=== PATIENT | male | born 1965 | race Caucasian/White ===

== ENCOUNTER 2019-08-05 10:22 | Emergency (ER) | payer SELFPAY ==
[2019-08-05] MEDS ORDERED: LIDOCAINE 5% (700 MG) TRANSDERMAL ADH..PATCH TP ONE (10:51)
[2019-08-05] MEDS ORDERED: KETOROLAC TROMETHAMINE 60 MG/2 ML SDV IM ONE (10:51)
[2019-08-05] MEDS ORDERED: CYCLOBENZAPRINE HCL 10 MG TABLET PO ONE (10:51)
--- NOTE | 2019-08-05 10:54 | ER Document Report ---
ED Medical Screen (RME) - General Chief Complaint: Back Pain Stated Complaint: BACK PAIN Time Seen by Provider: 08/05/19 10:46 Primary Care Provider: BARON VALDES [Primary Care Provider] - Follow up as needed Mode of Arrival: Ambulatory Information source: Patient Notes: Patient is a 54-year-old male presenting to the emergency department with chief complaint of right-sided low back pain that is now radiating into his right groin/testicle area. Patient reports he did some heavy lifting approximately 4 days ago and he thought that the pain was originating from that. Patient reports pain has progressively gotten worse. Patient denies any blood in his urine or dysuria. Patient is tearful in triage. Exam: Right-sided lumbar paraspinous tenderness. Right lower quadrant abdominal tenderness with palpation. I have greeted and performed a rapid initial assessment of this patient. A comprehensive ED assessment and evaluation of the patient, analysis of test results and completion of the medical decision making process will be conducted by additional ED providers. I have specifically instructed the patient or family members with the patient to immediately return to any nursing staff should anything change in the patient's condition or with their chief complaint. This medical record was dictated with voice recognizing software. There may be grammatical, syntax errors that are unintended. - Related Data Allergies/Adverse Reactions: No Known Allergies Allergy (Verified 06/20/12 16:57) Home Medications: aleve Past Medical History - Social History Frequency of alcohol use: Occasional Drug Abuse: Marijuana - Immunizations Hx Diphtheria, Pertussis, Tetanus Vaccination: Yes Physical Exam - Vital signs Vitals: Temp Pulse Resp BP Pulse Ox 98.1 F 81 14 184/91 H 94 08/05/19 10:31 08/05/19 10:31 08/05/19 10:31 08/05/19 10:31 08/05/19 10:31 Course - Vital Signs Vital signs: Temp Pulse Resp BP Pulse Ox 98.1 F 81 14 184/91 H 94 08/05/19 10:31 08/05/19 10:31 08/05/19 10:31 08/05/19 10:31 08/05/19 10:31 Doctor's Discharge - Discharge Referrals: BARON VALDES [Primary Care Provider] - Follow up as needed
[2019-08-05 11:27] LABS: ABSOLUTE BASOPHILS # (AUTO) 0.1 10^3/uL (0.0-0.2); ABSOLUTE EOSINOPHILS # (AUTO) 0.1 10^3/uL (0.0-0.6); ABSOLUTE LYMPHOCYTES (AUTO) 1.2 10^3/uL (0.5-4.7); ABSOLUTE MONOCYTES (AUTO) 0.5 10^3/uL (0.1-1.4); ABSOLUTE NEUT (AUTO) 3.9 10^3/uL (1.7-8.2); BASOPHILS % (AUTO) 0.9 % (0-2); EOSINOPHILS % (AUTO) 1.5 % (0-6); HEMATOCRIT 45.4 % (37.9-51.0); HEMOGLOBIN 15.5 g/dL (13.5-17.0); LYMPHOCYTES % (AUTO) 21.1 % (13-45); MEAN CORPUSCULAR HEMOGLOBIN 32.6 pg (27.0-33.4); MEAN CORPUSCULAR HGB CONC 34.3 g/dL (32.0-36.0); MEAN CORPUSCULAR VOLUME 95 fl (80-97); MONOCYTES % (AUTO) 9.5 % (3-13); PLATELET COUNT 162 10^3/uL (150-450); RED BLOOD COUNT 4.77 10^6/uL (4.35-5.55); RED CELL DISTRIBUTION WIDTH 13.5 % (11.5-14.0); TOTAL CELLS COUNTED % (AUTO) 100 %; WHITE BLOOD COUNT 5.7 10^3/uL (4.0-10.5)
[2019-08-05 11:47] LABS: ALBUMIN 4.4 g/dL (3.5-5.0); ALKALINE PHOSPHATASE 96 U/L (38-126); ANION GAP 7 (5-19); ASPARTATE AMINO TRANSFERASE 30 U/L (17-59); BILIRUBIN,DIRECT 0.2 mg/dL (0.0-0.4); BILIRUBIN,TOTAL 0.7 mg/dL (0.2-1.3); BLOOD UREA NITROGEN 18 mg/dL (7-20); CALCIUM 9.6 mg/dL (8.4-10.2); CARBON DIOXIDE 34 mmol/L (22-30); CHLORIDE 96 mmol/L (98-107); GLUCOSE 113 mg/dL (75-110); POTASSIUM 5.4 mmol/L (3.6-5.0); TOTAL PROTEIN 7.9 g/dL (6.3-8.2)
[2019-08-05 11:50] LABS: APPEARANCE,URINE CLEAR; BILIRUBIN,URINE NEGATIVE (NEGATIVE); COLOR,URINE YELLOW; GLUCOSE, URINE NEGATIVE (NEGATIVE); KETONES,URINE NEGATIVE (NEGATIVE); PROTEIN,URINE NEGATIVE (NEGATIVE); URINE SPECIFIC GRAVITY 1.017; UROBILINOGEN,URINE NEGATIVE mg/dL (<2.0)
--- NOTE | 2019-08-05 12:00 | RADIOLOGY REPORT (SQ) ---
EXAM DESCRIPTION: CT ABD/PELVIS NO ORAL OR IV COMPLETED DATE/TIME: 08/05/2019 11:15 am REASON FOR STUDY: R flank/RLQ pain COMPARISON: None. TECHNIQUE: CT scan of the abdomen and pelvis performed without intravenous or oral contrast. Images reviewed with lung, soft tissue, and bone windows. Reconstructed coronal and sagittal MPR images revi ewed. All images stored on PACS. All CT scanners at this facility use dose modulation, iterative reconstruction, and/or weight based d osing when appropriate to reduce radiation dose to as low as reasonably achievable (ALARA). [facility]: Dose Right [facility]: CareDose [facility]: Dose Right [facility]: Teradose 4D [facility]: ParentingInformer RADIATION DOSE: CT Rad equipment meets quality standard of care and radiation dose reduction techniq ues were employed. CTDIvol: 15.2 mGy. DLP: 822 mGy-cm.mGy. LIMITATIONS: None. FINDINGS: LOWER CHEST: No significant findings. No nodules or infiltrates. NON-CONTRASTED LIVER, SPLEEN, ADRENALS: Evaluation limited by lack of IV contrast. No identified sign ificant masses. PANCREAS: No masses. No peripancreatic inflammatory changes. GALLBLADDER: No identified stones by CT criteria. No inflammatory changes to suggest cholecystitis. RIGHT KIDNEY AND URETER: No suspicious masses. Assessment limited by lack of IV contrast. No signif icant calcifications. No hydronephrosis or hydroureter. LEFT KIDNEY AND URETER: No solid masses. There appears to be a parapelvic cyst. No significant samantha cifications. No hydronephrosis or hydroureter. AORTA AND RETROPERITONEUM: No aneurysm. No retroperitoneal masses or adenopathy. BOWEL AND PERITONEAL CAVITY: Scattered sigmoid diverticula with no associated acute inflammation. No obvious bowel mass. APPENDIX: Normal. PELVIS, BLADDER, AND ABDOMINAL WALL:Urinary bladder is normal. No abnormal pelvic mass or fluid malena ection. A 3 cm wide umbilical hernia contains only fat. BONES: No significant findings. OTHER: No other significant finding. IMPRESSION: 1. No acute finding in the abdomen or pelvis. No urinary pathology is seen. The appen nina is normal. 2. There is a 3 cm wide umbilical hernia containing fat. COMMENT: Quality ID # [id number]: Final reports with documentation of one or more dose reduction techniques (e.g., Automated exposure control, adjustment of the mA and/or kV according to patient size, use of iterative reconstruction technique) TECHNICAL DOCUMENTATION: JOB ID: [id number] [employer]- All Rights Reserved Reading location - IP/workstation name: [email or web address]
--- NOTE | 2019-08-05 13:53 | ER Document Report ---
ED General - General Chief Complaint: Back Pain Stated Complaint: BACK PAIN Time Seen by Provider: 08/05/19 10:46 Primary Care Provider: BARON VALDES [Primary Care Provider] - Follow up as needed Mode of Arrival: Ambulatory Information source: Patient - HPI Notes: Patient states during the end of last week he was using a sledgehammer to tear down a chimney. He states after this he developed some right low back pain. He states it has increased. He states over the last 3 days he is tried rest and anti-inflammatories with no significant relief. The pain is mainly in the right lower back and goes into his right buttocks. He states he did get one sharp pain into the right testicle but none since. The pain is worse with movement and better with rest. He denies any abnormal sensations or numbness around the perineal rectal or testicle area. He states he has no new problems with urination or defecation. He can ambulate. No nausea or vomiting. The pain has been severe and sharp. By the time I saw him in the room he had received a dose of anti-inflammatories and a lidocaine patch and states that he feels significantly improved. States she is able to sleep for an hour in the room. - Related Data Allergies/Adverse Reactions: No Known Allergies Allergy (Verified 06/20/12 16:57) Home Medications: aleve Past Medical History - General Information source: Patient - Social History Smoking Status: Current Every Day Smoker Frequency of alcohol use: Occasional Drug Abuse: Marijuana Family History: Reviewed & Not Pertinent Patient has suicidal ideation: No Patient has homicidal ideation: No - Immunizations Hx Diphtheria, Pertussis, Tetanus Vaccination: Yes Review of Systems - Review of Systems Constitutional: denies: Chills, Fever Cardiovascular: denies: Chest pain, Palpitations Respiratory: denies: Cough, Short of breath Genitourinary: denies: Incontinence, Urgency, Retention -: Yes All other systems reviewed and negative Physical Exam - Vital signs Vitals: Temp Pulse Resp BP Pulse Ox 98.1 F 81 14 184/91 H 94 08/05/19 10:31 08/05/19 10:31 08/05/19 10:31 08/05/19 10:31 08/05/19 10:31 Interpretation: Hypertensive - General General appearance: Appears well, Alert In distress: None - HEENT Head: Normocephalic, Atraumatic Eyes: Normal Pupils: PERRL - Respiratory Respiratory status: No respiratory distress Chest status: Nontender Breath sounds: Normal Chest palpation: Normal - Cardiovascular Rhythm: Regular Heart sounds: Normal auscultation Murmur: No - Abdominal Inspection: Obese, Other - Has reducible umbilical hernia Distension: No distension Bowel sounds: Normal Tenderness: Nontender Organomegaly: No organomegaly - Back Back: Tender - Patient is tender to palpation of the right paraspinal musculature. The vertebral bodies themselves are not significantly tender there is no step-offs or deformities.. No: Vertebra tenderness - Extremities General upper extremity: Normal inspection, Nontender, Normal color, Normal ROM, Normal temperature General lower extremity: Normal inspection, Nontender, Normal color, Normal ROM, Normal temperature, Normal weight bearing. No: Cecilio's sign - Neurological Neuro grossly intact: Yes Cognition: Normal Orientation: AAOx4 [place] Coma Scale Eye Opening: Spontaneous [place] Coma Scale Verbal: Oriented Andrea Coma Scale Motor: Obeys Commands [place] Coma Scale Total: 15 Speech: Normal Motor strength normal: LUE, RUE, LLE, RLE Sensory: Normal - Psychological Associated symptoms: Normal affect, Normal mood - Skin Skin Temperature: Warm Skin Moisture: Dry Skin Color: Normal Course - Re-evaluation Re-evalutation: 08/05/19 13:54 My exam patient has no signs of cauda equina. Patient has no problems with bowel bladder no significant abnormal sensations. His blood pressure is somewhat elevated although he is in pain. I will recommend that he has this rechecked and monitored. I will send him home with pain medicine and anti- inflammatories. I did discuss with the patient that he most likely has a herniated disc. We discussed doing an MRI today but he states that he would rather wait and see if it does get better on its own. I thought this was a reasonable decision. Patient was educated about a peripheral nerve root impingement versus a central herniation of a disc. I told him the signs and symptoms of each 1 and what would constitute an emergency such that he should return to the emergency department. Patient appeared to understand and agreed with a trial of anti-inflammatories pain medicine and rest. - Vital Signs Vital signs: Temp Pulse Resp BP Pulse Ox 98.1 F 81 14 184/91 H 94 08/05/19 10:31 08/05/19 10:31 08/05/19 10:31 08/05/19 10:31 08/05/19 10:31 - Laboratory Result Diagrams: 08/05/19 11:05 08/05/19 11:05 Laboratory results interpreted by me: 08/05/19 11:05 Potassium 5.4 H Chloride 96 L Carbon Dioxide 34 H Glucose 113 H - Diagnostic Test Radiology reviewed: Image reviewed, Reports reviewed Discharge - Discharge Clinical Impression: Lumbar strain Qualifiers: Encounter type: initial encounter Qualified Code(s): S39.012A - Strain of mu scle, fascia and tendon of lower back, initial encounter Condition: Stable Disposition: HOME, SELF-CARE Instructions: Low Back Pain ([facility]), Oral Narcotic Medication ([facility]) Additional Instructions: Please return if the pain increases, you have problems with not being able to have bowel movements or not being able to urinate. Also please return if urine or stool is leaking. If you develop any abnormal sensations or numbness around your testicles or rectum or groin please return as well. Your blood pressure was elevated today but this may be due to pain. However is very important that you have your primary care physician monitor this and recheck your blood pressure again in the next week. If you do not have a primary care physician please follow-up with the [facility] whose number is on your discharge instructions. Prescriptions: Lidocaine [Lidoderm 5% (700 mg) Transdermal Patch] 1 patch TP DAILY 5 Days #5 adh..patch Ibuprofen [Motrin 600 Mg Tablet] 600 mg PO TID 3 Days #15 tablet Oxycodone HCl/Acetaminophen [Percocet 5-325 mg Tablet] 1 - 2 tab PO Q6 3 Days #12 tablet Referrals: LOCAL,NO [Primary Care Provider] - Follow up as needed
[2019-08-05 14:08] VITALS: BP 185/95
== END 2019-08-05 14:20 | disposition home or self-care (01) ==
LOC: ER 10:22
DX: S39.012A Strain of muscle, fascia and tendon of lower back, initial encounter (principal); X58.XXXA Exposure to other specified factors, initial encounter; K42.9 Umbilical hernia without obstruction or gangrene; N50.811 Right testicular pain; F17.200 Nicotine dependence, unspecified, uncomplicated; F12.10 Cannabis abuse, uncomplicated
CPT/HCPCS: 36415; 85025; 80053; 81001; 74176; J1885; 96374; 99284

== ENCOUNTER 2019-09-20 17:44 | Emergency (ER) | payer SELFPAY ==
[2019-09-20] MEDS ORDERED: HYDROCODONE/ACETAMINOPHEN 5-325 MG (6 TAB/ER DISP) PO PRN (18:20)
[2019-09-20] MEDS ORDERED: CLINDAMYCIN HCL 150 MG CAPSULE PO ONE (18:20)
--- NOTE | 2019-09-20 18:24 | ER Document Report ---
ED Oral Problem - General Chief Complaint: Toothache Stated Complaint: TOOTH PAIN Time Seen by Provider: 09/20/19 18:17 Primary Care Provider: [facility] [Provider Group] - Follow up as needed BARON VALDES [Primary Care Provider] - Follow up as needed Mode of Arrival: Ambulatory Information source: Patient Notes: 54-year-old male presented to ED for complaint of dental pain to the left upper jaw in the front for the last 4 days. He has had a dental cavity for much longer than that but it has been hurting for that long. He states he is not bee n able to sleep or eat or do anything. He states he is normally smokes much more than he does lately but he has barely smoked at all due to the pain for the last 4 days. - HPI Patient complains to provider of: Toothache Onset: Other - 4 days Onset: Gradual Quality of pain: Sharp, Throbbing Severity: Severe Pain Level: 5 Associated symptoms: Toothache Worsened by: Cold Relieved by: Nothing Similar symptoms previously: Yes Recently seen / treated by doctor/dentist: No - Related Data Allergies/Adverse Reactions: No Known Allergies Allergy (Verified 06/20/12 16:57) Past Medical History - General Information source: Patient - Social History Smoking Status: Current Every Day Smoker Cigarette use (# per day): Yes - Pack a day Smoking Education Provided: Yes - 4 minutes Frequency of alcohol use: Social Drug Abuse: Marijuana Lives with: Family Family History: Reviewed & Not Pertinent Patient has suicidal ideation: No Patient has homicidal ideation: No - Past Medical History Cardiac Medical History: Reports: None Pulmonary Medical History: Reports: None EENT Medical History: Reports: None Neurological Medical History: Reports: None Endocrine Medical History: Reports: None Renal/ Medical History: Reports: None Malignancy Medical History: Reports None GI Medical History: Reports: Other - Umbilical hernia Musculoskeletal Medical History: Reports None, Reports Hx Musculoskeletal Trauma Skin Medical History: Reports None Psychiatric Medical History: Reports: None Traumatic Medical History: Reports: None Infectious Medical History: Reports: None Past Surgical History: Reports: Hx Tonsillectomy Review of Systems - Review of Systems Constitutional: No symptoms reported EENT: Mouth pain, Dental problem Cardiovascular: No symptoms reported Respiratory: No symptoms reported Gastrointestinal: No symptoms reported Genitourinary: No symptoms reported Male Genitourinary: No symptoms reported Musculoskeletal: No symptoms reported Skin: No symptoms reported Hematologic/Lymphatic: No symptoms reported Neurological/Psychological: No symptoms reported -: Yes All other systems reviewed and negative Physical Exam - Vital signs Vitals: Temp Pulse BP Pulse Ox 98.6 F 87 172/98 H 96 09/20/19 18:17 09/20/19 18:17 09/20/19 18:17 09/20/19 18:17 Interpretation: Normal - General General appearance: Appears well, Alert - HEENT Head: Normocephalic, Atraumatic Eyes: Normal Pupils: PERRL Ears: Normal External canal: Normal Tympanic membrane: Normal Sinus: Normal Nasal: Purulent discharge Mouth/Lips: Normal Mucous membranes: Normal Teeth diagram: 1 - Dental pain with swelling to the gums tenderness to the face up to the Pharynx: Normal Neck: Normal - Respiratory Respiratory status: No respiratory distress Chest status: Nontender Breath sounds: Normal Chest palpation: Normal - Cardiovascular Rhythm: Regular Heart sounds: Normal auscultation Murmur: No - Abdominal Inspection: Normal Distension: No distension Bowel sounds: Normal Tenderness: Nontender Organomegaly: No organomegaly - Back Back: Normal, Nontender - Extremities General upper extremity: Normal inspection, Nontender, Normal color, Normal ROM, Normal temperature General lower extremity: Normal inspection, Nontender, Normal color, Normal ROM, Normal temperature, Normal weight bearing. No: Cecilio's sign - Neurological Neuro grossly intact: Yes Cognition: Normal Orientation: AAOx4 Andrea Coma Scale Eye Opening: Spontaneous [place] Coma Scale Verbal: Oriented [place] Coma Scale Motor: Obeys Commands [place] Coma Scale Total: 15 Speech: Normal Motor strength normal: LUE, RUE, LLE, RLE Sensory: Normal - Psychological Associated symptoms: Normal affect, Normal mood - Skin Skin Temperature: Warm Skin Moisture: Dry Skin Color: Normal Course - Re-evaluation Re-evalutation: 09/20/19 18:35 Presentation is most consistent with likely an infected tooth. Airway is patent. Vitals within normal limits. Patient is able swallow without any difficulty. There is no significant facial swelling. No evidence of Aden angina, apical abscess, or airway obstruction. Patient will be started on antibiotics. I've instructed to follow-up with dentistry as earliest ability for definitive management. At this time will discharge with return precautions and follow-up recommendations. Verbal discharge instructions given a the bedside and opportunity for questions given. Medication warnings reviewed. Patient is in agreement with this plan and has verbalized understanding of return precautions and the need for primary care follow-up in the next 24-72 hours. - Vital Signs Vital signs: Temp Pulse Resp BP Pulse Ox 98.6 F 87 172/98 H 96 09/20/19 18:17 09/20/19 18:17 09/20/19 18:17 09/20/19 18:17 Discharge - Discharge Clinical Impression: Pain due to dental caries Condition: Stable Disposition: HOME, SELF-CARE Additional Instructions: TOOTHACHE: Your pain is due to dental decay. The tooth must be repaired in order for you to feel better. You will, therefore, be referred to a dentist. We do not have dentists on the staff at [facility]. Severe swelling or drainage around a tooth usually means a dental abscess. This also requires evaluation and treatment by the dentist, but antibiotics may be prescribed while awaiting dental treatment. You should be rechecked immediately if you develop major swelling of the face, increasing pain, a lump in the jaw or gums, headache, difficulty swallowing, or fever. ORAL NARCOTIC MEDICATION: You have been given a [place] dispense pack for pain control. This medication is a narcotic. It's best taken with food, as nausea can result if taken on an empty stomach. Don't operate machinery or drive within six hours of taking this medication. Do not combine this medicine with alcohol, or with any medication which can cause sedation (such as cold tablets or sleeping pills) unless you get permission from the physician. Narcotics tend to cause constipation. If possible, drink plenty of fluids and eat a diet high in fiber and fruits. Please be aware that prescription narcotics also have the potential for abuse. People become addicted to these medications because of the general sense of wellbeing that they induce. This feeling along with a significant reduction in tension, anxiety, and aggression provides a stimulating seductive quality to these drugs. Once your pain is under control, we encourage you to discard your unused narcotics. CLINDAMYCIN: You have been given a prescription for the antibiotic clindamycin. It is often prescribed for infections in the mouth, such as dental infections or abscesses, and for skin infections due to MRSA. It's important that you take all the medication, unless instructed otherwise by your physician. Failure to complete the entire course can result in relapse of your condition. Common side effects of antibiotics include nausea, intestinal cramping, or diarrhea. Women may develop vaginal yeast infections, and babies can get yeast (thrush) in the mouth following the use of antibiotics. Contact your physician if you develop significant side effects from this medication. Allergy to this antibiotic can result in hives, wheezing, faintness, or itching. If symptoms of allergy occur, stop the medication and call the doctor. FOLLOW-UP CARE: You have been referred for follow-up care to the dentists listed below. Call the dentists office for an appointment as you were instructed or within the next two days. If you experience worsening or a significant change in your symptoms, notify the physician immediately or return to the Emergency Department at any time for re-evaluation. [facility] [address] [place] [address] [facility] [place] [address] [facility] [address] [facility] ([facility]) [facility] [address] [email or web address] [address] [place] [address] Monday- 8:00am to 5:00 pm [facility] other [facility]. Charges based on income and family size and accepts Medicare, Medicaid, and Insurances Will pull molars [facility] [address] Hours of Operation 8:00 am - 4:30 pm weekdays The following dental offices accept Medicaid: [facility] Dr. Mendez Dr. Javier Dr. Ortiz Dr. Torrez Quinn Huynh Luts[place], and [facility] oral [facility] Dr. Portillo ([place]) Dr. Burks ([place]) [facility] Drs. Doss ([place]) Dr. Carroll ([place]) [facility] Dr. Randhawa ([place]) Drs. Thompson and ([place]) Medicaid Care Line Prescriptions: Clindamycin HCl 300 mg PO Q6HP PRN #28 capsule PRN Reason: Forms: Smoking Cessation Education, Elevated Blood Pressure Referrals: BARON VALDES [Primary Care Provider] - Follow up as needed [facility] [Provider Group] - Follow up as needed
[2019-09-20 18:35] VITALS: BP 172/98
== END 2019-09-20 18:30 | disposition home or self-care (01) ==
LOC: ER 17:44
DX: K02.9 Dental caries, unspecified (principal); K08.89 Other specified disorders of teeth and supporting structures; F17.210 Nicotine dependence, cigarettes, uncomplicated; Z71.6 Tobacco abuse counseling; F12.10 Cannabis abuse, uncomplicated
CPT/HCPCS: 99282; 99406

== ENCOUNTER 2019-10-11 09:32 | Emergency (ER) | payer OTHER ==
--- NOTE | 2019-10-11 10:11 | ER Document Report ---
ED Medical Screen (RME) - General Chief Complaint: Abdominal Pain Stated Complaint: ABDOMINAL PAIN Time Seen by Provider: 10/11/19 10:00 Primary Care Provider: BARON VALDES [Primary Care Provider] - Follow up as needed Mode of Arrival: Ambulatory Information source: Patient Notes: This 54-year-old male with no prior history presents emergency department with a very large abdomen with reports of a hernia for the past 2 years. He reports recently abdominal pain increasing with pain radiating down to his groin. He reports decreased appetite. Also reports increased urinary frequency during the night. Also reports he notes blood in his stool occasionally. Denies fever vomiting. Has not been evaluated for these symptoms in the past. Patient abdomen large tight tender to touch in the lower abdomen with umbilical hernia noted, soft. I have greeted and performed a rapid initial assessment of this patient. A comprehensive ED assessment and evaluation of the patient, analysis of test results and completion of the medical decision making process will be conducted by additional ED providers. TRAVEL OUTSIDE OF THE [place] IN LAST 30 DAYS: No - Related Data Allergies/Adverse Reactions: No Known Allergies Allergy (Verified 10/11/19 09:51) Past Medical History - Social History Drug Abuse: Marijuana Musculoskeltal Medical History: Reports Hx Musculoskeletal Trauma Past Surgical History: Reports: Hx Tonsillectomy - Immunizations Hx Diphtheria, Pertussis, Tetanus Vaccination: Yes Physical Exam - Vital signs Vitals: Temp Pulse Resp BP Pulse Ox 97.7 F 78 18 166/88 H 95 10/11/19 09:45 10/11/19 09:45 10/11/19 09:45 10/11/19 09:45 10/11/19 09:45 Course - Vital Signs Vital signs: Temp Pulse Resp BP Pulse Ox 97.7 F 78 18 166/88 H 95 10/11/19 09:45 10/11/19 09:45 10/11/19 09:45 10/11/19 09:45 10/11/19 09:45 Doctor's Discharge - Discharge Referrals: BARON VALDES [Primary Care Provider] - Follow up as needed
[2019-10-11 10:37] LABS: APPEARANCE,URINE CLEAR; BILIRUBIN,URINE NEGATIVE (NEGATIVE); COLOR,URINE YELLOW; GLUCOSE, URINE 50 mg/dL (NEGATIVE); KETONES,URINE NEGATIVE (NEGATIVE); LEUKOCYTE ESTERASE,URINE NEGATIVE (NEGATIVE); NITRITE,URINE NEGATIVE (NEGATIVE); PROTEIN,URINE NEGATIVE (NEGATIVE); URINE SPECIFIC GRAVITY 1.014; UROBILINOGEN,URINE NEGATIVE mg/dL (<2.0)
[2019-10-11 11:14] LABS: ABSOLUTE EOSINOPHILS # (AUTO) 0.1 10^3/uL (0.0-0.6); ABSOLUTE LYMPHOCYTES (AUTO) 1.3 10^3/uL (0.5-4.7); ABSOLUTE MONOCYTES (AUTO) 0.5 10^3/uL (0.1-1.4); ABSOLUTE NEUT (AUTO) 4.8 10^3/uL (1.7-8.2); BASOPHILS % (AUTO) 0.7 % (0-2); EOSINOPHILS % (AUTO) 2.1 % (0-6); HEMATOCRIT 47.2 % (37.9-51.0); HEMOGLOBIN 16.4 g/dL (13.5-17.0); LYMPHOCYTES % (AUTO) 19.7 % (13-45); MEAN CORPUSCULAR HEMOGLOBIN 32.4 pg (27.0-33.4); MEAN CORPUSCULAR HGB CONC 34.7 g/dL (32.0-36.0); MEAN CORPUSCULAR VOLUME 93 fl (80-97); PLATELET COUNT 196 10^3/uL (150-450); RED BLOOD COUNT 5.07 10^6/uL (4.35-5.55); SEGMENTED NEUTROPHILS % (AUTO) 69.5 % (42-78); TOTAL CELLS COUNTED % (AUTO) 100 %; WHITE BLOOD COUNT 6.8 10^3/uL (4.0-10.5)
--- NOTE | 2019-10-11 11:18 | RADIOLOGY REPORT (SQ) ---
EXAM DESCRIPTION: U/S ABDOMEN LIMITED W/O DOP COMPLETED DATE/TIME: 10/11/2019 10:57 am REASON FOR STUDY: pain swelling hernia eval COMPARISON: None. TECHNIQUE: Dynamic and static grayscale images acquired of the abdomen and recorded on PACS. Additio nal selected color Doppler and spectral images recorded. LIMITATIONS: None. FINDINGS: Sonographic imaging of the periumbilical area shows a ventral hernia with apparent herniat ion of bowel with Valsalva maneuver. IMPRESSION: Ventral hernia as described. TECHNICAL DOCUMENTATION: JOB ID: [id number] [employer]- All Rights Reserved Reading location - IP/workstation name: [email or web address]
--- NOTE | 2019-10-11 11:22 | RADIOLOGY REPORT (SQ) ---
EXAM DESCRIPTION: U/S SCROTUM W/O DOPPLER COMPLETED DATE/TIME: 10/11/2019 10:57 am REASON FOR STUDY: ?inguinal hernia COMPARISON: None. TECHNIQUE: Static and realtime child scale imaging of the scrotum and testes. Selected color Doppler and spectral images recorded to document blood flow. LIMITATIONS: None. FINDINGS: RIGHT: TESTICLE: Normal size, 3.3 x 2.5 x 3.4 cm. Normal echotexture. Normal blood flow. No mass. EPIDIDYMIS: Normal, 11 mm. HYDROCELE OR VARICOCELE: Small hydrocele. HERNIA OR EXTRA-TESTICULAR MASS: There appears to be mild herniation of bowel in the right inguinal r egion with Valsalva maneuver. OTHER: No other significant finding. LEFT: TESTICLE: Normal size, 3.6 x 2.4 x 3.8 cm. Normal echotexture. Normal blood flow. No mass. EPIDIDYMIS: Normal, 11 mm. HYDROCELE OR VARICOCELE: Small hydrocele. HERNIA OR EXTRA-TESTICULAR MASS: No. OTHER: No other significant finding. IMPRESSION: Normal scrotal ultrasound except for the presence of small hydroceles bilaterally. Ther e appears to be a right inguinal hernia with mild herniation of bowel during a Valsalva maneuver. TECHNICAL DOCUMENTATION: JOB ID: [id number] [employer]- All Rights Reserved Reading location - IP/workstation name: [email or web address]
[2019-10-11 11:42] LABS: ALBUMIN 4.6 g/dL (3.5-5.0); ALKALINE PHOSPHATASE 74 U/L (38-126); ANION GAP 6 (5-19); ASPARTATE AMINO TRANSFERASE 39 U/L (17-59); BILIRUBIN,DIRECT 0.4 mg/dL (0.0-0.4); BILIRUBIN,TOTAL 0.8 mg/dL (0.2-1.3); BLOOD UREA NITROGEN 17 mg/dL (7-20); CALCIUM 10.2 mg/dL (8.4-10.2); CARBON DIOXIDE 34 mmol/L (22-30); CHLORIDE 96 mmol/L (98-107); GLUCOSE 89 mg/dL (75-110); POTASSIUM 5.5 mmol/L (3.6-5.0); TOTAL PROTEIN 8.2 g/dL (6.3-8.2)
[2019-10-11] MEDS ORDERED: IPRATROPIUM/ALBUTEROL 0.5-2.5 MG/3 ML AMPUL NEB ONE (12:37)
[2019-10-11] MEDS ORDERED: NORMAL SALINE 1000 ML 1,000 ML IV ONE (12:38)
--- NOTE | 2019-10-11 14:13 | RADIOLOGY REPORT (SQ) ---
EXAM DESCRIPTION: CT ABD/PELVIS WITH IV ONLY COMPLETED DATE/TIME: 10/11/2019 1:43 pm REASON FOR STUDY: abd pain despite umbilical hernia now reduced COMPARISON: None. TECHNIQUE: CT scan of the abdomen and pelvis performed using helical scanning technique with dynamic intravenous contrast injection. No oral contrast. Images reviewed with lung, soft tissue, and bone windows. Reconstructed coronal and sagittal MPR images reviewed. Delayed images for evaluation of the urinary system also acquired. All images stored on PACS. All CT scanners at this facility use dose modulation, iterative reconstruction, and/or weight based d osing when appropriate to reduce radiation dose to as low as reasonably achievable (ALARA). [facility]: Dose Right [facility]: CareDose [facility]: Dose Right [facility]: Teradose 4D [facility]: [employer] [facility] CONTRAST TYPE AND DOSE: Contrast/concentration: Isovue 350.00 mg/ml; Total Contrast Delivered: 100.0 ml; Total Saline Delivered: 70.0 ml RENAL FUNCTION: GFR > 60. RADIATION DOSE: CT Rad equipment meets quality standard of care and radiation dose reduction techniq ues were employed. CTDIvol: 17.7 - 19.8 mGy. DLP: 1953 mGy-cm.. LIMITATIONS: None. FINDINGS: LOWER CHEST: No acute findings. LIVER: The relative hypoattenuation of hepatic parenchyma compared to the splenic parenchyma on the p ortal venous phase is suggestive of hepatic steatosis. The portal veins are patent. There is no hep atic mass. SPLEEN: No splenomegaly or splenic mass. PANCREAS: No abnormality of the pancreas. GALLBLADDER: No abnormality that is apparent on CT. ADRENAL GLANDS: No mass or asymmetry. RIGHT KIDNEY AND URETER: No solid mass, hydronephrosis, nephrolithiasis, hydroureter or ureterolithia sis. LEFT KIDNEY AND URETER: 3 x 2.8 cm parapelvic cyst. There is no solid mass, hydronephrosis, nephroli thiasis or hydroureter or ureterolithiasis. AORTA AND VESSELS: No aneurysm of the abdominal aorta. RETROPERITONEUM: No retroperitoneal adenopathy, hemorrhage or mass. BOWEL AND PERITONEAL CAVITY: Colonic diverticulosis. There is no bowel obstruction, bowel wall thick ening, or pericolonic/perienteric inflammation. There is no mesenteric adenopathy, free intraperiton eal fluid, or mesenteric/ omental inflammation. APPENDIX: Normal. PELVIS: No abnormality of the prostate and urinary bladder. ABDOMINAL WALL: Fat containing umbilical hernia. BONES: No acute findings. OTHER: Spondylosis at L5-S1. IMPRESSION: 1. No acute intra-abdominal abnormality. 2. Fat containing umbilical hernia. 3. Colonic diverticulosis without diverticulitis. TECHNICAL DOCUMENTATION: JOB ID: [id number] Quality ID # [id number]: Final reports with documentation of one or more dose reduction techniques (e.g., Au tomated exposure control, adjustment of the mA and/or kV according to patient size, use of iterative reconstruction technique) 2010 [employer]- All Rights Reserved Reading location - IP/workstation name: [email or web address]-
[2019-10-11 14:14] VITALS: BP 164/98
--- NOTE | 2019-10-11 14:31 | ER Document Report ---
ED GI/ - General Chief Complaint: Abdominal Pain Stated Complaint: ABDOMINAL PAIN Time Seen by Provider: 10/11/19 10:00 Primary Care Provider: NADEEM MEADE MD [ACTIVE STAFF] - 10/15/19 2:30 pm Mode of Arrival: Ambulatory Notes: Patient is a 54-year-old male who comes in complaining of abdominal pain and nausea. States that he has a history of hernia and has not bothered him for a number of years. Has been bothering him the last 2 days. States that he has been lifting recently. No fever. Patient is still been having bowel movements. Denies any testicular pain. No dysuria. TRAVEL OUTSIDE OF THE [place] IN LAST 30 DAYS: No - HPI Timing/Duration: Gradual Quality of pain: Achy, Dull Severity at maximum: Moderate Severity in ED: Moderate Context: Lifting - Related Data Allergies/Adverse Reactions: No Known Allergies Allergy (Verified 10/11/19 09:51) Past Medical History - General Information source: Patient - Social History Smoking Status: Current Every Day Smoker Drug Abuse: Marijuana Family History: Reviewed & Not Pertinent Patient has suicidal ideation: No Patient has homicidal ideation: No Musculoskeletal Medical History: Reports Hx Musculoskeletal Trauma Past Surgical History: Reports: Hx Tonsillectomy - Immunizations Hx Diphtheria, Pertussis, Tetanus Vaccination: Yes Review of Systems - Review of Systems -: Yes All other systems reviewed and negative Physical Exam - Vital signs Vitals: Temp Pulse Resp BP Pulse Ox 97.7 F 78 18 166/88 H 95 10/11/19 09:45 10/11/19 09:45 10/11/19 09:45 10/11/19 09:45 10/11/19 09:45 Interpretation: Normal - General General appearance: Appears well, Alert - HEENT Head: Normocephalic, Atraumatic Eyes: Normal Pupils: PERRL - Respiratory Respiratory status: No respiratory distress Chest status: Nontender Breath sounds: Wheezing Chest palpation: Normal - Cardiovascular Rhythm: Regular Heart sounds: Normal auscultation Murmur: No - Abdominal Inspection: Obese, Other - Umbilical hernia Distension: No distension Bowel sounds: Normal Tenderness: Tender - Over umbilical hernia Organomegaly: No organomegaly - Back Back: Normal, Nontender - Extremities General upper extremity: Normal inspection, Nontender, Normal color, Normal ROM, Normal temperature General lower extremity: Normal inspection, Nontender, Normal color, Normal ROM, Normal temperature, Normal weight bearing. No: Cecilio's sign - Neurological Neuro grossly intact: Yes Cognition: Normal Orientation: AAOx4 [place] Coma Scale Eye Opening: Spontaneous [place] Coma Scale Verbal: Oriented [place] Coma Scale Motor: Obeys Commands Andrea Coma Scale Total: 15 Speech: Normal Motor strength normal: LUE, RUE, LLE, RLE Sensory: Normal - Psychological Associated symptoms: Normal affect, Normal mood - Skin Skin Temperature: Warm Skin Moisture: Dry Skin Color: Normal Course - Re-evaluation Re-evalutation: 10/11/19 Umbilical hernia reduced and patient shown how to do it. No surgical history. No acute findings on ultrasound, blood work, or CT except for a fat-containing umbilical hernia. Discussed with surgery, Dr. Meade. Patient can follow-up in the office. Patient is instructed to stop smoking and lose weight. Also given nebulizer treatment for slight expiratory wheeze. Appointment has been made for patient next Monday. Understands and agrees with plan. Taking p.o. without difficulty. Stable for discharge. Return if further concerns. Grateful for care. - Vital Signs Vital signs: Temp Pulse Resp BP Pulse Ox 98.1 F 70 16 164/98 H 93 10/11/19 14:11 10/11/19 14:11 10/11/19 14:11 10/11/19 14:11 10/11/19 14:11 - Laboratory Result Diagrams: 10/11/19 11:00 10/11/19 11:00 Laboratory results interpreted by me: 10/11/19 10/11/19 10:08 11:00 Sodium 135.6 L Potassium 5.5 H Chloride 96 L Carbon Dioxide 34 H Urine Glucose (UA) 50 H - Diagnostic Test Radiology reviewed: Reports reviewed Discharge - Discharge Clinical Impression: Bronchospasm Umbilical hernia Qualifiers: Obstruction and gangrene presence: without obstruction or gangrene Qualified Code(s): K42.9 - Umbilical hernia without obstruction or gangrene Condition: Stable Disposition: HOME, SELF-CARE Instructions: Bronchospasm ([facility]), Stop Smoking ([facility]), Umbilical Hernia ([facility]) Prescriptions: Ondansetron [Zofran Odt 4 mg Tablet] 1 tab PO Q6HP PRN #15 tab.rapdis PRN Reason: For Nausea/Vomiting Dicyclomine HCl [Bentyl 20 mg Tablet] 20 mg PO TIDP PRN #40 tablet PRN Reason: Forms: Return to Work Referrals: NADEEM MEADE MD [ACTIVE STAFF] - 10/15/19 2:30 pm
== END 2019-10-11 15:14 | disposition home or self-care (01) ==
LOC: ER 09:32
DX: K42.9 Umbilical hernia without obstruction or gangrene (principal); J98.01 Acute bronchospasm; R10.9 Unspecified abdominal pain; R11.0 Nausea; F17.200 Nicotine dependence, unspecified, uncomplicated; F12.10 Cannabis abuse, uncomplicated
CPT/HCPCS: 94640; 99284; 96360; 96361; 36415; 83605; 83690; 85025; 80053; 81001; 76870; 76705; 74177; J7030; J7620

== ENCOUNTER 2020-02-24 10:21 | Emergency (ER) | payer OTHER ==
[2020-02-24] MEDS ORDERED: MORPHINE SULFATE 10 MG/ML INJ IV ONE (10:46)
[2020-02-24] MEDS ORDERED: ONDANSETRON HCL INJ/PF 4 MG/2 ML SDV IV ONE (10:46)
--- NOTE | 2020-02-24 10:47 | ER Document Report ---
ED Medical Screen (RME) - General Chief Complaint: Flank Pain Stated Complaint: FLANK PAIN Time Seen by Provider: 02/24/20 10:43 Mode of Arrival: Wheelchair Information source: Patient Notes: 54-year-old male patient presented to the emergency department chief complaint of left-sided abdominal pain. Patient reports the pain started several days ago on the left lateral rib area but has now spread to the left upper quadrant of his abdomen. He denies any trauma to the area. He does report that the pain is getting worse every day. He denies any fevers, nausea, vomiting, diarrhea. He reports normal bowel movements every morning. He has never had this type of pain before. Tenderness to palpation left upper quadrant. I have greeted and performed a rapid initial assessment of this patient. A comprehensive ED assessment and evaluation of the patient, analysis of test results and completion of the medical decision making process will be conducted by additional ED providers. I have specifically instructed the patient or family members with the patient to immediately return to any nursing staff should anything change in the patient's condition or with their chief complaint. TRAVEL OUTSIDE OF THE [place] IN LAST 30 DAYS: No - Related Data Allergies/Adverse Reactions: No Known Allergies Allergy (Verified 10/11/19 09:51) Past Medical History Musculoskeltal Medical History: Reports Hx Musculoskeletal Trauma Past Surgical History: Reports: Hx Tonsillectomy - Immunizations Hx Diphtheria, Pertussis, Tetanus Vaccination: Yes Physical Exam - Vital signs Vitals: Temp Pulse Resp BP Pulse Ox 98.5 F 89 20 170/91 H 94 02/24/20 10:02/24/20 10:02/24/20 10:02/24/20 10:02/24/20 10:26 Course - Vital Signs Vital signs: Temp Pulse Resp BP Pulse Ox 98.5 F 89 20 170/91 H 94 02/24/20 10:02/24/20 10:02/24/20 10:02/24/20 10:02/24/20 10:26
[2020-02-24 11:36] LABS: ABSOLUTE EOSINOPHILS # (AUTO) 0.2 10^3/uL (0.0-0.6); ABSOLUTE LYMPHOCYTES (AUTO) 1.4 10^3/uL (0.5-4.7); ABSOLUTE MONOCYTES (AUTO) 0.6 10^3/uL (0.1-1.4); ABSOLUTE NEUT (AUTO) 5.6 10^3/uL (1.7-8.2); BASOPHILS % (AUTO) 0.6 % (0-2); EOSINOPHILS % (AUTO) 2.2 % (0-6); HEMATOCRIT 45.8 % (37.9-51.0); HEMOGLOBIN 16.2 g/dL (13.5-17.0); LYMPHOCYTES % (AUTO) 17.9 % (13-45); MEAN CORPUSCULAR HEMOGLOBIN 32.8 pg (27.0-33.4); MEAN CORPUSCULAR HGB CONC 35.4 g/dL (32.0-36.0); MEAN CORPUSCULAR VOLUME 93 fl (80-97); MONOCYTES % (AUTO) 7.7 % (3-13); PLATELET COUNT 184 10^3/uL (150-450); RED BLOOD COUNT 4.94 10^6/uL (4.35-5.55); RED CELL DISTRIBUTION WIDTH 13.1 % (11.5-14.0); SEGMENTED NEUTROPHILS % (AUTO) 71.6 % (42-78); TOTAL CELLS COUNTED % (AUTO) 100 %; WHITE BLOOD COUNT 7.8 10^3/uL (4.0-10.5)
[2020-02-24] MEDS ORDERED: OXYCODONE-ACETAMINOPHEN 5-325 MG TABLET PO ONE (11:43)
[2020-02-24] MEDS ORDERED: IBUPROFEN 600 MG TABLET PO ONE (11:43)
[2020-02-24 11:48] LABS: APPEARANCE,URINE CLEAR; BILIRUBIN,URINE NEGATIVE (NEGATIVE); COLOR,URINE YELLOW; GLUCOSE, URINE NEGATIVE (NEGATIVE); KETONES,URINE NEGATIVE (NEGATIVE); LEUKOCYTE ESTERASE,URINE NEGATIVE (NEGATIVE); NITRITE,URINE NEGATIVE (NEGATIVE); PROTEIN,URINE NEGATIVE (NEGATIVE); URINE SPECIFIC GRAVITY 1.024; UROBILINOGEN,URINE NEGATIVE mg/dL (<2.0)
[2020-02-24 11:52] LABS: ALBUMIN 4.5 g/dL (3.5-5.0); ALKALINE PHOSPHATASE 75 U/L (38-126); ANION GAP 5 (5-19); ASPARTATE AMINO TRANSFERASE 26 U/L (17-59); BILIRUBIN,TOTAL 0.5 mg/dL (0.2-1.3); BLOOD UREA NITROGEN 18 mg/dL (7-20); CALCIUM 9.7 mg/dL (8.4-10.2); CARBON DIOXIDE 33 mmol/L (22-30); CHLORIDE 97 mmol/L (98-107); GLUCOSE 109 mg/dL (75-110); TOTAL PROTEIN 7.5 g/dL (6.3-8.2)
--- NOTE | 2020-02-24 12:34 | ER Document Report ---
ED General - General Chief Complaint: Rib Pain Stated Complaint: FLANK PAIN Time Seen by Provider: 02/24/20 10:43 Mode of Arrival: Wheelchair Notes: 54-year-old male with morbid obesity chronic back and neck issues, notable coronary presents with left upper flank pain and back pain radiating around from his back worse with movement onset about a week and a half ago, no nausea no vomiting. Feels like "it is tearing under my ribs". No shortness of breath hemoptysis no leg swelling. Seen at triage labs ordered. Denies urinary symptoms other than nocturia. TRAVEL OUTSIDE OF THE [place] IN LAST 30 DAYS: No - Related Data Allergies/Adverse Reactions: No Known Allergies Allergy (Verified 10/11/19 09:51) Past Medical History - General Information source: Patient - Social History Smoking Status: Current Every Day Smoker Smoking Education Provided: Yes - The patient ED visit today was directly related to their abuse of tobacco. Family History: Reviewed & Not Pertinent Patient has homicidal ideation: No Musculoskeletal Medical History: Reports Hx Musculoskeletal Trauma Past Surgical History: Reports: Hx Tonsillectomy - Immunizations Hx Diphtheria, Pertussis, Tetanus Vaccination: Yes Review of Systems - Review of Systems Notes: REVIEW OF SYSTEMS GEN: Denies fever, chills, weight loss ENT: Denies sore throat, nasal discharge, ear pain EYES: Denies blurry vision, eye pain, discharge CV: Denies chest pain, palpitations, edema RESP: Denies cough, shortness of breath, wheezing GI: D abdominal pain flank pain MSK: Denies joint pain/swelling, edema, SKIN: Denies rash, skin lesions LYMPH: Denies swollen glands/lymph nodes NEURO: Denies headache, focal weakness or numbness, dizziness PSYCH: Denies depression, suicidal or homicidal ideation PHYSICAL EXAMINATION General: No acute distress, well-nourished Head: Atraumatic, normocephalic ENT: Mouth normal, oropharynx moist, no exudates or tonsillar enlargement Eyes: Conjunctiva normal, pupils equal, lids normal Neck: No JVD, supple, no guarding CVS: Normal rate, regular rhythm, no murmurs, tender along the left lower costal margin Resp: No resp distress, equal and normal breath sounds bilaterally GI: Umbilical hernia, reducible with obese abdomen nondistended, soft, no tenderness to palpation, no rebound or guarding Ext: No deformities, no edema, normal range of motion in upper and lower ext Back: No CVA or midline TTP Skin: No rash, warm Lymphatic: No lymphadeopathy noted Neuro: Awake, alert. Face symmetric. GCS 15. Physical Exam - Vital signs Vitals: Temp Pulse Resp BP Pulse Ox 98.5 F 89 20 170/91 H 94 02/24/20 10:26 02/24/20 10:26 02/24/20 10:26 02/24/20 10:26 02/24/20 10:26 Course - Re-evaluation Re-evalutation: 02/24/20 12:33 Costal margin/upper abdominal pain for several weeks with mild tenderness along the costal margin. Suspect muscular secondary to obesity and stretch versus splenomegaly versus GERD Will rule out stones and pyelonephritis I do not think the patient requires contrasted CT, this does not seem like a bowel obstruction, or an infectious etiology Morphine was ordered at triage but the pain is subacute ongoing and treated with oral pain medicine. 02/24/20 18:18 Patient is better with Percocet. His imaging is negative urine labs are ne gative. I suspect this is due to obesity, stretch effect versus rectus diastases. No evidence of focal tenderness or need for further work-up. Patient be discharged with follow-up with primary care. I have discussed with the patient there likely diagnosis, aftercare plan, follow-up plans and my usual and customary return precautions. They verbalized understanding of this. - Vital Signs Vital signs: Temp Pulse Resp BP Pulse Ox 98.0 F 74 18 169/94 H 93 02/24/20 13:05 02/24/20 13:05 02/24/20 13:05 02/24/20 13:05 02/24/20 13:05 - Laboratory Result Diagrams: 02/24/20 11:20 02/24/20 11:20 Laboratory results interpreted by me: 02/24/20 11:20 Sodium 135.3 L Chloride 97 L Carbon Dioxide 33 H - Diagnostic Test Radiology reviewed: Image reviewed, Reports reviewed Discharge - Discharge Clinical Impression: Left flank pain Condition: Good Disposition: HOME, SELF-CARE Instructions: Abdominal Pain ([facility]), Bulk Laxatives Additional Instructions: No dangerous cause was found for your abdominal pain. Please follow-up with a surgeon for your umbilical hernia and your primary care regarding her abdominal pain
--- NOTE | 2020-02-24 13:00 | RADIOLOGY REPORT (SQ) ---
EXAM DESCRIPTION: CT ABD/PELVIS NO ORAL OR IV IMAGES COMPLETED DATE/TIME: 02/24/2020 12:30 pm REASON FOR STUDY: flank pain COMPARISON: CT of the abdomen and pelvis without contrast from 08/05/2019. TECHNIQUE: CT scan of the abdomen and pelvis performed without intravenous or oral contrast. Images reviewed with lung, soft tissue, and bone windows. Reconstructed coronal and sagittal MPR images revi ewed. All images stored on PACS. All CT scanners at this facility use dose modulation, iterative reconstruction, and/or weight based d osing when appropriate to reduce radiation dose to as low as reasonably achievable (ALARA). [facility]: Dose Right [facility]: CareDose [facility]: Dose Right [facility]: Teradose 4D [facility]: [employer] RADIATION DOSE: CT Rad equipment meets quality standard of care and radiation dose reduction techniq ues were employed. CTDIvol: 17.4 mGy. DLP: 967 mGy-cm. LIMITATIONS: None. FINDINGS: LOWER CHEST: No acute findings. NON-CONTRASTED LIVER, SPLEEN, ADRENALS: Evaluation is limited due to the absence of intravenous contr ast. The diffuse low attenuation of the hepatic parenchyma is consistent with underlying hepatic ann atosis. The spleen is normal in size. There is no adrenal mass. PANCREAS: No acute gross abnormality of the pancreas. GALLBLADDER: No evaluation that is apparent on CT. RIGHT KIDNEY AND URETER: Evaluation is limited due to the absence of intravenous contrast. There is no hydronephrosis, nephrolithiasis, hydroureter or ureterolithiasis. LEFT KIDNEY AND URETER: Evaluation is limited due to the absence of intravenous contrast. There is a probable parapelvic cyst that measures 2.9 x 2.7 cm. There is no hydronephrosis, nephrolithiasis, h ydroureter or ureterolithiasis. AORTA AND RETROPERITONEUM: No aneurysm of the abdominal aorta. No retroperitoneal adenopathy, hemorr dary or mass. BOWEL AND PERITONEAL CAVITY: Colonic diverticulosis without diverticulitis. There is no bowel obstru ction, bowel wall thickening or pericolonic/ perienteric inflammation. There is no mesenteric adenop athy, free intraperitoneal fluid or mesenteric/ omental inflammation. APPENDIX: Normal. PELVIS, BLADDER, AND ABDOMINAL WALL:Unchanged fat containing umbilical hernia. The prostate gland me asures 3.5 cm in transverse diameter. The urinary bladder is contracted BONES: No acute fracture or osseous lesion. OTHER: No other finding. IMPRESSION: No acute intra-abdominal abnormality. COMMENT: Quality ID # [id number]: Final reports with documentation of one or more dose reduction techniques (e.g., Automated exposure control, adjustment of the mA and/or kV according to patient size, use of iterative reconstruction technique) TECHNICAL DOCUMENTATION: JOB ID: [id number] 2010 [employer]- All Rights Reserved Reading location - IP/workstation name: [email or web address]
[2020-02-24 13:07] VITALS: BP 169/94
== END 2020-02-24 13:12 | disposition home or self-care (01) ==
LOC: ER 10:21
DX: R10.9 Unspecified abdominal pain (principal); R07.81 Pleurodynia; E66.01 Morbid (severe) obesity due to excess calories; F17.210 Nicotine dependence, cigarettes, uncomplicated
CPT/HCPCS: 36415; 74176; 80053; 81001; 83690; 85025; 99284